=== PATIENT | male | born 1970 | race Caucasian/White ===

== ENCOUNTER 2024-02-03 19:39 | Inpatient (IN) | payer BC ==
[2024-02-03] MEDS: NITROGLYCERIN SL TABS 0.4 MG TAB SUBLINGUAL STA (20:25)
[2024-02-03 20:32] LABS: Basophils # (A) 0.1 k/uL (0-0.2); Basophils % (A) 1 %; Eosinophils # (A) 0.1 k/uL (0-0.7); Eosinophils % (A) 2 %; HCT 37.8 % (39.0-53.0); HGB 13.3 gm/dL (13.0-17.5); Lymphocytes % (A) 29 %; MCH 33.1 pg (25.0-35.0); MCHC 35.3 g/dL (31.0-37.0); MCV 93.7 fL (80.0-100.0); Mean Platelet Volume 9.7; Monocytes # (A) 0.5 k/uL (0-1.0); Monocytes % (A) 7 %; Neutrophils # (A) 3.9 k/uL (1.3-7.7); Neutrophils % (A) 58 %; Platelet Count 178 k/uL (150-450); RBC 4.03 m/uL (4.30-5.90); RDW 12.9 % (11.5-15.5); WBC 6.7 k/uL (3.8-10.6)
[2024-02-03 20:48] LABS: INR 0.9 (<1.2); Prothrombin Time 10.3 sec (10.0-12.5)
[2024-02-03 21:02] LABS: ALT 31 U/L (4-49); AST 33 U/L (17-59); African American GFR (CKD) >90 (>60 ml/min/1.73 sqM); Alkaline Phosphatase 91 U/L (38-126); Anion Gap 10 mmol/L; Blood Urea Nitrogen 20 mg/dL (9-20); Calcium 8.9 mg/dL (8.4-10.2); Carbon Dioxide 20 mmol/L (22-30); Chloride 105 mmol/L (98-107); Glucose 254 mg/dL (74-99); Magnesium 1.9 mg/dL (1.6-2.3); Non-African American GFR(CKD) >90 (>60 ml/min/1.73 sqM); Sodium 135 mmol/L (137-145); Total Bilirubin 0.6 mg/dL (0.2-1.3); Total Protein 6.9 g/dL (6.3-8.2)
[2024-02-03 21:19] LABS: Potassium 4.5 mmol/L (3.5-5.1)
[2024-02-03] MEDS: ONDANSETRON 4 MG/2 ML VIAL IVP STA (21:31)
[2024-02-03] MEDS: MORPHINE SULFATE 4 MG/ML SYRINGE IVP STA ×2 (21:31→23:51)
--- NOTE | 2024-02-03 21:44 | ED ---
Chest Pain HPI - General Source: patient, EMS Mode of arrival: EMS Limitations: no limitations <Ashwin Stapleton - Last Filed: 02/04/24 00:25> <Radha Omer - Last Filed: 02/04/24 01:38> - General Chief Complaint: Chest Pain Stated Complaint: Chest Pain Time Seen by Provider: 02/03/24 19:52 - History of Present Illness Initial Comments: 53-year-old male with a past medical history significant for hypertension, hyperlipidemia, type 2 diabetes presenting to the ED with a chief complaint of chest pain. Patient reports that he normally walks on the treadmill for approximately an hour a day at 3 mph. States today he was on the treadmill and approximately 15 minutes and started to feel a squeezing pain in the middle of his chest. Patient reports pain is constant. States that it seems to radiate to his right arm and right side of his neck. Reports that he was given nitro by EMS and baby aspirin for his and states that pain is currently 4 out of 10 and is ready. Patient is a non-smoker. Does note some associated shortness of breath with this. No abdominal pain or change in bowel or bladder habits. No fever or chills. No other complaints at this time. (Ashwin Stapleton) - Related Data Allergies Allergy/AdvReac Type Severity Reaction Status Date / Time No Known Allergies Allergy Verified 02/03/24 19:52 Review of Systems ROS Other: All systems not noted in ROS Statement are negative. <Ashwin Stapleton - Last Filed: 02/04/24 00:25> ROS Other: All systems not noted in ROS Statement are negative. <Radha Omer - Last Filed: 02/04/24 01:38> ROS Statement: Those systems with pertinent positive or pertinent negative responses have been documented in the HPI. Past Medical History Past Medical History: Diabetes Mellitus, Hyperlipidemia, Hypertension History of Any Multi-Drug Resistant Organisms: None Reported Past Surgical History: No Surgical Hx Reported Past Psychological History: No Psychological Hx Reported Smoking Status: Never smoker Past Alcohol Use History: Rare Past Drug Use History: None Reported <Ashwin Stapleton - Last Filed: 02/04/24 00:25> General Exam Limitations: no limitations <Ashwin Stapleton - Last Filed: 02/04/24 00:25> Course Vital Signs 02/03/24 02/03/24 02/03/24 19:48 19:50 20:46 Pulse Rate 70 68 Pulse Rate [ 70 Java Analyst ] Respiratory 16 16 Rate Blood Pressure 138/79 127/84 O2 Sat by Pulse 95 95 Oximetry 02/03/24 02/03/24 02/04/24 22:05 23:26 00:07 Pulse Rate 66 61 62 Pulse Rate [ Java Analyst ] Respiratory 16 16 22 Rate Blood Pressure 139/86 125/72 147/75 O2 Sat by Pulse 95 98 Oximetry 02/04/24 02/04/24 02/04/24 00:10 00:15 00:20 Pulse Rate 62 61 56 L Pulse Rate [ Java Analyst ] Respiratory 13 20 17 Rate Blood Pressure 147/93 147/93 115/71 O2 Sat by Pulse 98 98 97 Oximetry 02/04/24 02/04/24 00:22 00:25 Pulse Rate 54 L 55 L Pulse Rate [ Java Analyst ] Respiratory 20 15 Rate Blood Pressure 108/70 108/70 O2 Sat by Pulse 96 97 Oximetry Chest Pain MDM <Ashwin Stapleton - Last Filed: 02/04/24 00:25> <Radha Omer - Last Filed: 02/04/24 01:38> - MDM Was pt. sent in by a medical professional or institution ([facility], TEACHER DRAMA, urgent care, hospital, or prison...) When possible be specific @ -No Did you speak to anyone other than the patient for history (EMS, parent, family, police, friend...)? What history was obtained from this source @ -No Did you review nursing and triage notes (agree or disagree)? Why? @ -I reviewed and agree with nursing and triage notes Were old charts reviewed (outside hosp., previous admission, EMS record, old EKG, old radiological studies, urgent care reports/EKG's, prison records)? Report findings @ -No old charts were reviewed Differential Diagnosis (chest pain, altered mental status, abdominal pain women, abdominal pain men, vaginal bleeding, weakness, fever, dyspnea, syncope, headache, dizziness, GI bleed, back pain, seizure, CVA, palpatations, mental health, musculoskeletal)? @ -Differential Chest Pain: Stable Angina, Unstable Angina, STEMI, NSTEMI Aortic Dissection, Pneumothorax, Musculoskeletal, Esophageal Spasm GERD, Cholecystitis, Pancreatitis, Zoster, this is not meant to be an all-inclusive list. EKG interpreted by me (3pts min.). @ -Initial EKG interpreted by me which showed a sinus rhythm at a rate of 67 bpm with a KY 142, QRS 94, QT/QTc 399/415. This did show some ST elevations in 2 3 aVF Repeat EKG showed a sinus rhythm at 67 bpm with a [place] of 149, QRS 102, QT/QTc 396/412. There were some ST elevations in 2 3 and aVF. Patient had another EKG performed as he stated chest pain returned with increased pain Shows sinus rhythm with ST elevation in lead I, 2, aVL changed from prior. X-rays interpreted by me (1pt min.). @ -Chest x-ray interpreted me which revealed no evidence of acute process. CT interpreted by me (1pt min.). @ -None done U/S interpreted by me (1pt. min.). @ -None done What testing was considered but not performed or refused? (CT, X-rays, U/S, labs)? Why? @ -None What meds were considered but not given or refused? Why? @ -None Did you discuss the management of the patient with other professionals (professionals i.e. , PA, TEACHER DRAMA, lab, RT, psych nurse, social services manager, commuter train operator, teacher, nuclear officer, bilingual patient support caseworker)? Give summary @ -My attending physician discussed the case with Dr. Connors of cardiology and [facility] for admission. Was smoking cessation discussed for >3mins.? @ -No Was critical care preformed (if so, how long)? @ -35 Were there social determinants of health that impacted care today? How? (Homelessness, low income, unemployed, alcoholism, drug addiction, transportation, low edu. Level, literacy, decrease access to med. care, group home, rehab)? @ -Nou Was there de-escalation of care discussed even if they declined (Discuss DNR or withdrawal of care, Hospice)? DNR status @ -No What co-morbidities impacted this encounter? (DM, HTN, Smoking, COPD, CAD, Cancer, CVA, ARF, Chemo, Hep., AIDS, mental health diagnosis, sleep apnea, morbid obesity)? @ -Hypertension, hyperlipidemia, type 2 diabetes Was patient admitted / discharged? Hospital course, mention meds given and route, prescriptions, significant lab abnormalities, going to OR and other pertinent info. @ -Admission 53-year-old male presenting to the ED with complaints of chest pain after he was on the treadmill with some associated lightheadedness, diaphoresis, shortness of breath. Initial EKG here did show some ST elevations in 2 3 aVF. Initial troponin indeterminate at 0.24. Patient reported significant increase of this chest pain and had a repeat EKG performed which showed changes compared to prior. Case discussed with Dr. Connors who came to evaluate the patient. Initiated heparin here in the emergency department patient will be admitted. Undiagnosed new problem with uncertain prognosis? @ -No Drug Therapy requiring intensive monitoring for toxicity (Heparin, Nitro, Insulin, Cardizem)? @ -Heparin Were any procedures done? @ -No Diagnosis/symptom? @ -Unstable angina Acute, or Chronic, or Acute on Chronic? @ -Acute Uncomplicated (without systemic symptoms) or Complicated (systemic symptoms)? @ -Complicated Side effects of treatment? @ -No Exacerbation, Progression, or Severe Exacerbation? @ -No Poses a threat to life or bodily function? How? (Chest pain, [place], [place], pneumonia, PE, COPD, DKA, ARF, appy, cholecystitis, CVA, Diverticulitis, Homicidal, Suicidal, threat to staff... and all critical care pts) @ -Yes, unstable angina (Ashwin Stapleton) Patient care was discussed with me upon arrival, I reviewed the first EKG and agreed that it appeared ischemic but did not meet STEMI criteria I recommended t reatment for unstable angina with heparin unless there were significant contraindications. I reviewed the second EKG and was concern for ischemic changes again this does not meet STEMI criteria however I did discuss the findings with on-call music arranger Dr. Connors given the patient's history and EKG changes he did recommend activation of the Leadership Development Manager. Dr. Connors came to bedside to evaluate the patient recommended Leadership Development Manager for unstable angina with symptomatic chest pain. Patient remained awake alert oriented and hemodynamically stable throughout his stay in the ER and was transferred to the Leadership Development Manager. I then spoke with Dr. Ayon regarding this patient and he accepts the admission. (Radha Omer) Disposition Time of Disposition: 00:00 <Ashwin Stapleton - Last Filed: 02/04/24 00:25> <Radha Omer - Last Filed: 02/04/24 01:38> Clinical Impression: Unstable angina Disposition: ADMITTED IP TO THIS HOSP Condition: Fair
--- NOTE | 2024-02-03 23:27 | XR ---
EXAMINATION TYPE: XR chest 2V DATE OF EXAM: 02/03/2024 COMPARISON: NONE HISTORY: Chest pain. TECHNIQUE: Frontal and lateral views of the chest are obtained. FINDINGS: Suspect some mild chronic parenchymal changes bilaterally. There is no suspicious focal air space opacity, pleural effusion, or pneumothorax seen. The cardiac silhouette size is within normal limits. The osseous structures are intact. IMPRESSION: No acute process.
[2024-02-03] MEDS ORDERED: HEPARIN SODIUM 1,000 UN/ML (10ML VL) IV PRN (23:55)
[2024-02-04] MEDS: HEPARIN SODIUM 1,000 UN/ML (10ML VL) IV ONE (00:05)
[2024-02-04] MEDS: HEPARIN SOD,PORK IN 0.45% NACL 25,000 UNIT in 0.45% NACL 1 250ML.BAG IV SCH (00:06)
[2024-02-04] MEDS: HYDROmorphone 1 MG/ML 1 ML SYRINGE IVP STA (00:07)
[2024-02-04] MEDS: NITROGLYCERIN SL TABS 0.4 MG TAB SUBLINGUAL PRN (00:11)
[2024-02-04] MEDS ORDERED: VERAPAMIL 2.5 MG/ML 2 ML AMP ONE (00:33)
[2024-02-04] MEDS ORDERED: LIDOCAINE 1% INJ 10MG/ML (20 ML MDV) ONE (00:33)
--- NOTE | 2024-02-04 00:33 | P.CRDCN ---
History of Present Illness History of present illness: HISTORY OF PRESENTING ILLNESS Patient is a pleasant 53-year-old male with history of obesity, diabetes mellitus type 2, strong family history of CAD who presents secondary to chest pain. He states he had been feeling fairly well up until tonight when he started having chest discomfort when he was exercising on a treadmill. He did have associated diaphoresis and shortness breath and had stopped some mild improvement however chest pain had been stuttering and eventually worsened and called EMS. He was given aspirin and 2 nitroglycerin with improvement in chest pain. Initial EKG showing normal sinus rhythm, normal axis, no significant ST or T wave abnormalities. Patient was chest pain-free however then began having more chest heaviness 8 out of 10 with associated diaphoresis and shortness breath and EKG showed dynamic changes with significant ST depressions, T-wave inversions inferiorly as well as minimal J-point elevation, ST elevation 1 and aVL. He denies any similar episodes in the past. Does have father with history of aortic valve replacement as well as all of his 6-7 brothers and sisters with stents. He has been on cholesterol medications for last 20 years. Initial troponin 0.02 however repeat 0.1. He was given additional nitroglycerin, heparin and currently chest pain mildly improved at 4 out of 10. REVIEW OF SYSTEMS At the time of my exam: CONSTITUTIONAL: Denies fever or chills. CARDIOVASCULAR: Denies chest pain, shortness of breath, orthopnea, PND or palpitations. RESPIRATORY: Denies cough. GASTROINTESTINAL: Denies abdominal pain, diarrhea, constipation, nausea or vomiting. MUSCULOSKELETAL: Denies myalgias. NEUROLOGIC: Denies numbness, tingling or weakness. ENDOCRINE: Denies fatigue, weight change, polydipsia or polyurina. GENITOURINARY: Denies burning, hematuria or urgency with micturation. HEMATOLOGIC: Denies history of anemia or bleeding. PHYSICAL EXAMINATION Vital signs reviewed. CONSTITUTIONAL: No apparent distress, mildly diaphoretic, obese. HEENT: Head is normocephalic. Pupils are equal, round. Sclerae anicteric. Mucous membranes of the mouth are moist. No JVD. No carotid bruit. CHEST EXAMINATION: Lungs are clear to auscultation. No chest wall tenderness is noted on palpation or with deep breathing. HEART EXAMINATION: Regular rate and rhythm. S1, S2 heard. No murmurs, gallops or rub. ABDOMEN: Soft, nontender. Positive bowel sounds. EXTREMITIES: 2+ peripheral pulses, no lower extremity edema and no calf tenderness. NEUROLOGIC EXAMINATION: Patient is awake, alert and oriented x3. ASSESSMENT 1. Non-STEMI with ongoing chest pain 2. Hyperlipidemia 3. Strong family history of CAD 4. Diabetes mellitus type 2 5. Morbid obesity PLAN Patient with stuttering chest pain new-onset consistent with unstable angina wi th additional minimally elevated troponins. Given the ongoing chest pain Surveillance Dual Rate Officer team called in and we will proceed with urgent heart catheterization. Check 2-D echo. Aspirin and Lipitor. Beta ana as tolerated however borderline lower heart rates in the 50s. Further recommendations to follow. Past Medical History Past Medical History: Diabetes Mellitus, Hyperlipidemia, Hypertension History of Any Multi-Drug Resistant Organisms: None Reported Past Surgical History: No Surgical Hx Reported Past Psychological History: No Psychological Hx Reported Smoking Status: Never smoker Past Alcohol Use History: Rare Past Drug Use History: None Reported Medications and Allergies Allergies Allergy/AdvReac Type Severity Reaction Status Date / Time No Known Allergies Allergy Verified 02/03/24 19:52 Physical Exam Vitals: Vital Signs Pulse Pulse Resp BP Pulse Ox 02/04/24 00:20 56 L 17 115/71 97 02/04/24 00:15 61 20 147/93 98 02/04/24 00:10 62 13 147/93 98 02/04/24 00:07 62 22 147/75 98 02/03/24 23:26 61 16 125/72 95 02/03/24 22:05 66 16 139/86 02/03/24 20:46 68 16 127/84 95 02/03/24 19:50 70 02/03/24 19:48 70 16 138/79 95 Intake and Output 02/03/24 02/03/24 02/04/24 14:59 22:59 06:59 Other: Weight 121.109 kg Results 02/03/24 20:08 02/03/24 20:08 Cardiac Enzymes 02/03/24 02/03/24 02/03/24 Range/Units 20:08 20:08 22:48 AST 33 (17-59) U/L Troponin I 0.024 0.113 H* (0.000-0.034) ng/mL Coagulation 02/03/24 Range/Units 20:08 PT 10.3 (10.0-12.5) sec APTT 22.0 (22.0-30.0) sec CBC 02/03/24 Range/Units 20:08 WBC 6.7 (3.8-10.6) k/uL RBC 4.03 L (4.30-5.90) m/uL Hgb 13.3 (13.0-17.5) gm/dL Hct 37.8 L (39.0-53.0) % Plt Count 178 (150-450) k/uL Comprehensive Metabolic Panel 02/03/24 Range/Units 20:08 Sodium 135 L (137-145) mmol/L Potassium 4.5 (3.5-5.1) mmol/L Chloride 105 (98-107) mmol/L Carbon Dioxide 20 L (22-30) mmol/L BUN 20 (9-20) mg/dL Creatinine 0.78 (0.66-1.25) mg/dL Glucose 254 H (74-99) mg/dL Calcium 8.9 (8.4-10.2) mg/dL AST 33 (17-59) U/L ALT 31 (4-49) U/L Alkaline Phosphatase 91 (38-126) U/L Total Protein 6.9 (6.3-8.2) g/dL Albumin 4.0 (3.5-5.0) g/dL Current Medications Generic Name Dose Route Start Last Admin Trade Name Freq PRN Reason Stop Dose Admin Heparin Sodium (Porcine) 0 unit 02/03/24 23:55 Heparin Sodium 1,000 Un/Ml (10ml Vl) IV PER PROTOCOL PRN Low PTT Protocol Heparin Sodium/Sodium Chloride 250 mls @ 10 mls/hr 02/03/24 23:45 02/04/24 00:06 25,000 unit/ Sodium Chloride IV 8.257 units/kg/hr .Q24H PEGGY 10 mls/hr Administration Protocol 8.257 UNITS/KG/HR Nitroglycerin 0.4 mg 02/04/24 00:03 02/04/24 00:11 Nitroglycerin Sl Tabs 0.4 Mg Tab SUBLINGUAL 0.4 mg Q5M PRN Administration Chest Pain Intake and Output 02/03/24 02/03/24 02/04/24 14:59 22:59 06:59 Other: Weight 121.109 kg Patient Weight 02/04/24 06:59 Weight 121.109 kg 02/03/24 20:08 02/03/24 20:08
[2024-02-04] MEDS: MIDAZOLAM 2 MG/2 ML VIAL IVP ONE (00:40)
[2024-02-04] MEDS: fentaNYL (PF) 50 MCG/ML 2 ML AMP IVP ONE (00:42)
[2024-02-04] MEDS ORDERED: fentaNYL (PF) 50 MCG/ML 2 ML AMP ONE (00:43)
[2024-02-04] MEDS: LIDOCAINE 1% INJ 10MG/ML (5 ML VIAL-PF) SQ ONE (00:43)
[2024-02-04] MEDS: VERAPAMIL SYRINGE (5 MG/10 ML) INTRAARTER ONE (00:45)
[2024-02-04] MEDS ORDERED: HEPARIN SODIUM 1,000 UN/ML (10ML VL) ONE ×2 (00:48→01:12)
[2024-02-04] MEDS ORDERED: TICAGRELOR 90 MG TAB ONE (00:49)
[2024-02-04] MEDS: SODIUM CHLORIDE 0.9% 1,000 ML IV ONE (00:49)
[2024-02-04] MEDS: TICAGRELOR 90 MG TAB PO ONE (00:52)
[2024-02-04] MEDS: IOPAMIDOL-370 100ML BTL INJ ONE ×2 (01:10→01:29)
[2024-02-04] MEDS: NITROGLYCERIN 1000MCG/10ML SYRINGE INTRACORON ONE (01:16)
[2024-02-04 01:54] LABS: Glucose,Whole Blood 168 mg/dL (70-110)
[2024-02-04] MEDS ORDERED: MAG HYDROX/AL HYDROX/SIMETH 30 ML CUP PO PRN (01:56)
[2024-02-04] MEDS ORDERED: ATROPINE SULFATE 0.1 MG/ML 10ML SYRINGE IV PRN (01:56)
[2024-02-04] MEDS ORDERED: RX INFO: IV CONTRAST WAS GIVEN 1 EACH MISC MISCELLANE PRN (01:56)
--- NOTE | 2024-02-04 01:56 | P.PRCINT ---
Percutaneous Coronary Int. - Percutaneous Coronary Intervention Percutaneous Coronary Intervention: PROCEDURES PERFORMED: Left heart catheterization, bilateral coronary angiography, ultrasound guided arterial access, PCI mid LAD with a 3.5 x 28mm Xience DEBRA, post dilated with a 4.0 NC balloon, IVUS LAD, Penumbra aspiration thrombetcomy LAD INDICATION: Unstable angina with ongoing chest pain, non-STEMI with evolution to STEMI by the time he reached the Respiratory Care Practitioner CONSENT:I have discussed the risks, benefits and alternative therapies for the above-mentioned procedure and for both sedation/analgesia as well as necessary blood product administration, if indicated, as they pertain to this patient. The patient has indicated understanding and acceptance of the risks and procedures discussed. PROCEDURE: After the risks, benefits and alternatives of the above mentioned procedure explained in detail with the patient, informed consent was obtained. Patient was taken to the catheterization lab and prepped and draped in usual fashion. Initially in ER EKG was normal and then to show progressive ST depressions and T-wave inversions however no criteria for elevations. By the time he reached the Respiratory Care Practitioner he was found to have ST elevations in V3 through V6. Ultrasound guidance was used to assess for arterial access. 1% lidocaine was used to anesthetize the right radial artery. A 6-Lao sheath was placed in the right radial artery using modified Seldinger technique and ultrasound guidance. The decision was made to perform PCI of LAD. A 6-Lao CLS 3.5 guide was used to engage the left main. A 0.014 BMW wire was advanced with distal LAD. Predilation was performed with a 2.5 x 12 mm balloon. Next Penumbra aspiration thrombectomy was performed x 2 passes. Intravascular ultrasound showed diffuse disease with more soft plaque. A 3.5 x 28 mm Xience drug-eluting stent was placed in long term in a small diagonal branch however without any impingement given lesion came back to before the diagonal branch on intravascular ultrasound. Next repeat intravascular ultrasound was performed with some underexpansion of the stents and therefore a 4.0 x 12 mm noncompliant balloon was used to post dilate the stent. The distal portion of the stent was still under expanded and therefore a 4.0 x 8 mm noncompliant balloon was taken up to 26 mm with improvement in stent apposition and stent expansion. Repeat intravascular ultrasound showed excellent stent apposition with no dissection. Final angiograms were performed. Pre-intervention there was 100% stenosis and ELIAZAR 0 flow and postintervention there was less than 10% stenosis with ELIAZAR 3 flow. Right coronary angiography was performed with a 5-Lao FR5 catheter in various views. A 5-Lao FR5 catheter was inserted into the left ventricle and pressure measurements were obtained. The right radial sheath was removed and a TR band was placed with hemostasis achieved. The patient tolerated the procedure well. Patient was transported back to the post catheterization holding area in stable condition. Conscious Sedation: Patient was monitored under the direct supervision of myself for conscious sedation using Versed and fentanyl for a total duration of 51 minutes HEMODYNAMICS: Aorta: 122/88 LV: 127/8, LVEDP 32 SELECTIVE CORONARY ARTERIOGRAPHY: LEFT MAIN: The left main is a large caliber vessel which bifurcates into the LAD and circumflex. There is no significant stenosis. LEFT ANTERIOR DESCENDING CORONARY ARTERY: LAD is a large caliber vessel which wraps around to the apex. There is dual LAD system with a small caliber more septal branch with mild luminal irregularities. There is mild proximal LAD 10- 20% stenosis and a mid LAD 100% stenosis just after a small caliber diagonal 1 branch. The remainder of the LAD has mild luminal irregularities. LEFT CIRCUMFLEX CORONARY ARTERY: Left circumflex is a moderate caliber vessel diffuse mild luminal irregularities 10-20% stenosis. RIGHT CORONARY ARTERY: The right coronary artery is a large caliber vessel which gives off a PDA and PLV branch and is the dominant vessel. There is a proximal RCA 30% stenosis, and mid RCA 40% stenosis in the mid to distal RCA 50% stenosis. The PDA appears small caliber and has a 60-70% ostial stenosis. FINAL IMPRESSION: 1. CAD as described above with 100% mid LAD stenosis, 50% RCA stenosis, 60-70% small caliber PDA ostial stenosis 2. Anterior ST elevations noted upon arrival to the Respiratory Care Practitioner, progressed from the ER 3. Significantly elevated left sided filling pressures 4. Status post PCI mid LAD with a 3.5 x 28mm Xience DEBRA, post dilated with a 4.0 NC balloon PLAN: 1. Aggressive risk factor modification per most recent ACC/AHA guidelines. 2. Treat RCA medically. If patient having more angina-type symptoms consider stress testing or functional assessment of RCA with iFR/FFR 3. Continue dual antiplatelets with aspirin in [place] for 12 months.
[2024-02-04] MEDS: SODIUM CHLORIDE 0.9% 1,000 ML in EMPTY BAG 1 BAG IV SCH (02:31)
[2024-02-04] MEDS: ZOLPIDEM 5 MG TAB PO PRN (02:40)
[2024-02-04] MEDS: METOPROLOL SUCCINATE (ER) 25 MG TAB.ER.24H PO SCH (04:05)
[2024-02-04 05:19] LABS: Basophils % (A) 0 %; Eosinophils % (A) 0 %; HCT 46.2 % (39.0-53.0); HGB 15.7 gm/dL (13.0-17.5); Lymphocytes # (A) 1.5 k/uL (1.0-4.8); Lymphocytes % (A) 12 %; MCH 31.4 pg (25.0-35.0); MCV 92.5 fL (80.0-100.0); Mean Platelet Volume 9.1; Monocytes # (A) 0.5 k/uL (0-1.0); Monocytes % (A) 4 %; Neutrophils # (A) 10.2 k/uL (1.3-7.7); Neutrophils % (A) 83 %; Platelet Count 223 k/uL (150-450); RDW 13.1 % (11.5-15.5); WBC 12.3 k/uL (3.8-10.6)
[2024-02-04 05:35] LABS: African American GFR (CKD) >90 (>60 ml/min/1.73 sqM); Anion Gap 13 mmol/L; Blood Urea Nitrogen 16 mg/dL (9-20); Carbon Dioxide 19 mmol/L (22-30); Chloride 105 mmol/L (98-107); Glucose 198 mg/dL (74-99); INR 0.9 (<1.2); Non-African American GFR(CKD) >90 (>60 ml/min/1.73 sqM); Potassium 4.4 mmol/L (3.5-5.1); Prothrombin Time 10.5 sec (10.0-12.5); Sodium 137 mmol/L (137-145)
[2024-02-04] MEDS: IBUPROFEN 600 MG TAB PO PRN (06:26)
[2024-02-04] MEDS: ASPIRIN 81 MG PO SCH (08:12)
[2024-02-04] MEDS: LOSARTAN 25 MG TAB PO SCH (08:12)
[2024-02-04] MEDS: TICAGRELOR 90 MG TAB PO SCH (08:12)
[2024-02-04] MEDS ORDERED: ONDANSETRON 4 MG/2 ML VIAL IVP PRN (09:27)
[2024-02-04] MEDS: LOSARTAN 50 MG TAB PO SCH (09:30)
--- NOTE | 2024-02-04 10:48 | PN ---
PROGRESS NOTE This gentleman has history of CAD, came in with a [id number] [place] which went on to have ST-elevation [place] just before the procedure, underwent stenting of a totally occluded mid LAD with a good result. Has moderate disease in RCA. He is doing well. Remains hemodynamically stable in sinus rhythm without any significant EKG changes. R- waves are fairly well preserved with some QS pattern in leads V1 and V2. He underwent stenting from the right radial approach. Site is clean and dry. He has moderate disease in RCA. Plan is to continue dual antiplatelet therapy, statins, increase activity, and move him to telemetry. We will obtain echocardiogram to assess LV function. I will increase the dose of losartan to 50 mg daily. Vital signs stable. S1-S2 heard normally. Lungs are clear. Abdomen and lower extremity exam unchanged. Right radial site is clean and dry. Will move to telemetry. AGNES / JAMESN: [id number] /
[2024-02-04 11:42] LABS: Glucose,Whole Blood 235 mg/dL (70-110)
[2024-02-04] MEDS ORDERED: DEXTROSE 50% SYRINGE 50 ML IVP PRN ×2 (12:29)
--- NOTE | 2024-02-04 12:32 | P.HPIM ---
History of Present Illness H&P Date: 02/04/24 Chief Complaint: Chest pain * 53-year-old gentleman with past medical history of diabetes mellitus type 2, history of obesity presents to the emergency department with complaints of chest pain. Patient stated his symptom onset started while he was exercising on a treadmill. Chest pain associated with diaphoresis shortness of breath. * Patient complained of worsening chest pain shortness of breath and EMS was called. Patient was given aspirin as well as nitroglycerin with improvement in chest pain. * Initial EKG obtained showed significant ST segment depression T wave i nversions in inferior lead. * Initial troponin was obtained which was elevated, cardiology was consulted and patient was started on nitroglycerin and IV heparin * Patient was eventually taken to cardiac Counseling Department Chair underwent PCI to LAD with drug-eluting stent * Transitioning to Counseling Department Chair patient had ST elevations and was noted to have 100% mid LAD stenosis, 50% RCA stenosis 60 to 70% PDA stenosis REVIEW OF SYSTEMS: Chest pain, shortness of breath CONSTITUTIONAL: No fever, no malaise, no fatigue. HEENT: No recent visual problems or hearing problems. Denied any sore throat. CARDIOVASCULAR: Chest pain, shortness of breath PULMONARY: No shortness of breath, no cough, no hemoptysis. GASTROINTESTINAL: No diarrhea, no nausea, no vomiting, no abdominal pain. NEUROLOGICAL: No headaches, no weakness, no numbness. HEMATOLOGICAL: Denies any bleeding or petechiae. GENITOURINARY: Denies any burning micturition, frequency, or urgency. MUSCULOSKELETAL/RHEUMATOLOGICAL: Denies any joint pain, swelling, or any muscle pain. ENDOCRINE: Denies any polyuria or polydipsia. PHYSICAL EXAMINATION: GENERAL: The patient is alert and oriented x3, not in any acute distress. Well developed, well nourished. HEENT: Pupils are round and equally reacting to light. EOMI. Normocephalic, atraumatic. CARDIOVASCULAR: S1 and S2 present. No murmurs , Right radial access PULMONARY: Chest is clear to auscultation, no wheezing or crackles. ABDOMEN: Soft, nontender, nondistended, normoactive bowel sounds. No palpable organomegaly. MUSCULOSKELETAL: No joint swelling or deformity. EXTREMITIES: No cyanosis, clubbing, or pedal edema. NEUROLOGICAL: Gross neurological examination did not reveal any focal deficits. SKIN: No rashes. Past Medical History Past Medical History: Chest Pain / Angina, Diabetes Mellitus, Hyperlipidemia, Hypertension, Myocardial Infarction (TN) Last Myocardial Infarction Date:: 02/03/24 History of Any Multi-Drug Resistant Organisms: None Reported Past Surgical History: No Surgical Hx Reported Past Anesthesia/Blood Transfusion Reactions: No Reported Reaction Past Psychological History: No Psychological Hx Reported Smoking Status: Never smoker Past Alcohol Use History: Rare Past Drug Use History: None Reported - Past Family History Father Family Medical History: Chest Pain / Angina, Coronary Artery Disease (CAD), Diabetes Mellitus, Hypertension, Liver Disease Additional Family Medical History / Comment(s): AVR Mother Family Medical History: Diabetes Mellitus Medications and Allergies Home Medications Medication Instructions Recorded Confirmed Type Aspirin EC [Ecotrin Low Dose] 81 mg PO DAILY 02/04/24 02/04/24 History Atorvastatin [Lipitor] 10 mg PO DAILY 02/04/24 02/04/24 History Empagliflozin [Jardiance] 25 mg PO DAILY 02/04/24 02/04/24 History Glimepiride [Amaryl] 4 mg PO AC-BID 02/04/24 02/04/24 History metFORMIN HCL [Glucophage] 1,000 mg PO AC-BID 02/04/24 02/04/24 History Allergies Allergy/AdvReac Type Severity Reaction Status Date / Time No Known Allergies Allergy Verified 02/04/24 11:33 Physical Exam Vitals: Vital Signs Temp Pulse Pulse Resp BP Pulse Ox 02/04/24 08:00 98.4 F 66 19 139/87 96 02/04/24 07:00 70 15 135/83 93 L 02/04/24 06:00 70 18 147/83 97 02/04/24 05:00 79 20 145/92 95 02/04/24 04:00 97.9 F 76 12 149/89 96 02/04/24 03:00 66 16 155/97 96 02/04/24 02:45 70 18 97 02/04/24 02:30 66 13 97 02/04/24 02:15 97.5 F L 70 16 155/97 97 02/04/24 00:25 55 L 15 108/70 97 02/04/24 00:22 54 L 20 108/70 96 02/04/24 00:20 56 L 17 115/71 97 02/04/24 00:15 61 20 147/93 98 02/04/24 00:10 62 13 147/93 98 02/04/24 00:07 62 22 147/75 98 02/03/24 23:26 61 16 125/72 95 02/03/24 22:05 66 16 139/86 02/03/24 20:46 68 16 127/84 95 02/03/24 19:50 70 02/03/24 19:48 70 16 138/79 95 Intake and Output 02/03/24 02/04/24 02/04/24 22:59 06:59 14:59 Intake Total 1440 195.5 Output Total 1050 300 Balance 390 -104.5 Intake: IV 900 120 Sodium Chloride 0.9% 1, 600 120 000 ml In Empty Bag 1 bag @ 1 ML/KG/HR 121.109 mls /hr IV .Q8H16M [facility] Rx#: [id number] Intake, IV Titration 75.5 Amount Heparin Sod,Pork in 0.45% 75.5 NaCl 25,000 unit In 0.45 % NaCl 1 250ml.bag @ 8. 257 UNITS/KG/HR 10 mls/hr IV .Q24H [facility] Rx#: [id number] Oral 540 Output: Urine 1050 300 Other: Voiding Method Urinal Urinal Weight 121.109 kg 121.109 kg Results CBC & Chem 7: 02/04/24 04:44 02/04/24 04:44 Labs: Abnormal Lab Results - Last 24 Hours (Table) 02/03/24 02/03/24 02/03/24 Range/Units 20:08 20:08 22:48 WBC (3.8-10.6) k/uL RBC 4.03 L (4.30-5.90) m/uL Hct 37.8 L (39.0-53.0) % Neutrophils # (1.3-7.7) k/uL APTT (22.0-30.0) sec Sodium 135 L (137-145) mmol/L Carbon Dioxide 20 L (22-30) mmol/L Glucose 254 H (74-99) mg/dL POC Glucose (mg/dL) (70-110) mg/dL Troponin I 0.113 H* (0.000-0.034) ng/mL 02/04/24 02/04/24 02/04/24 Range/Units 01:53 04:44 04:44 WBC 12.3 H (3.8-10.6) k/uL RBC (4.30-5.90) m/uL Hct (39.0-53.0) % Neutrophils # 10.2 H (1.3-7.7) k/uL APTT 35.5 H (22.0-30.0) sec Sodium (137-145) mmol/L Carbon Dioxide (22-30) mmol/L Glucose (74-99) mg/dL POC Glucose (mg/dL) 168 H (70-110) mg/dL Troponin I (0.000-0.034) ng/mL 02/04/24 Range/Units 04:44 WBC (3.8-10.6) k/uL RBC (4.30-5.90) m/uL Hct (39.0-53.0) % Neutrophils # (1.3-7.7) k/uL APTT (22.0-30.0) sec Sodium (137-145) mmol/L Carbon Dioxide 19 L (22-30) mmol/L Glucose 198 H (74-99) mg/dL POC Glucose (mg/dL) (70-110) mg/dL Troponin I (0.000-0.034) ng/mL Thrombosis Risk Factor Assmnt - Choose All That Apply Any of the Below Risk Factors Present?: Yes Each Factor Represents 1 point: Acute TN, Age 41-60 years Other Risk Factors: No Other congenital or acquired thrombophilia - If yes, enter type in comment: No Thrombosis Risk Factor Assessment Total Risk Factor Score: 2 Thrombosis Risk Factor Assessment Level: Low Risk Assessment and Plan Assessment: Assessment and plan Non-ST elevated TN on presentation which transitioned to anterior ST elevations Coronary artery disease s/p PCI LAD Diabetes mellitus type 2 Obesity * Regards to non-ST elevated TN patient treated with nitroglycerin and IV heparin, s/p cardiac catheterization and PCI to LAD continue patient on dual antiplatelet, * Echocardiogram ordered, cardiology consulted and following * In regards to diabetes mellitus Accu-Cheks ACHS continue patient on oral hypoglycemic * In regards to obesity BMI of 39, lifestyle modification recommended * CODE STATUS is full code Time with Patient: Greater than 30
--- NOTE | 2024-02-04 12:40 | CA ---
Transthoracic Echo Report Name: Yunior Engel Age: 53 Gender: M : 1970 Exam Date: 02/04/2024 11:04 Exam Location: [facility] Ht (in): 69 Wt (lb): 267 Ordering Physician: Brian Connors DO ([email or web address]) Attending/Referring Phys: Gut Carrier Imelda Cage RDCS Procedure CPT: Indications: re: LV function Cardiac Hx: Technical Quality: Technically difficult study Contrast 1: Definity Total Dose (mL): 2 Contrast 2: Total Dose (mL): MEASUREMENTS (Male / Female) Normal Values 2D ECHO LV Diastolic Diameter PLAX 5.5 cm 4.2 - 5.9 / 3.9 - 5.3 cm LV Systolic Diameter PLAX 3.7 cm IVS Diastolic Thickness 1.5 cm 0.6 - 1.0 / 0.6 - 0.9 cm LVPW Diastolic Thickness 1.3 cm 0.6 - 1.0 / 0.6 - 0.9 cm LV Relative Wall Thickness 0.5 RV Internal Dim ED PLAX 3.3 cm M-MODE Aortic Root Diameter MM 3.8 cm LA Systolic Diameter MM 2.9 cm LA Ao Ratio MM 0.8 AV Cusp Separation MM 1.6 cm DOPPLER AV Peak Velocity 114.6 cm/s AV Peak Gradient 5.3 mmHg AV Mean Velocity 91.8 cm/s AV Mean Gradient 3.5 mmHg AV Velocity Time Integral 22.4 cm LVOT Peak Velocity 85.6 cm/s LVOT Peak Gradient 2.9 mmHg LVOT Velocity Time Integral 17.7 cm MV Area PHT 4.4 cm??? Mitral E Point Velocity 62.5 cm/s Mitral A Point Velocity 82.4 cm/s Mitral E to A Ratio 0.8 MV Deceleration Time 174.3 ms MV E' Velocity 5.5 cm/s Mitral E to MV E' Ratio 11.4 FINDINGS Left Ventricle Moderately increased left ventricular wall thickness. Left ventricular cavity size normal. Moderately impaired left ventricular systolic function with ejection fraction of 40-45% with apical and mid anterior apical and septal wall hypokinesis. Right Ventricle Normal right ventricular size and function. Right ventricular systolic pressure within normal limits. Right Atrium Normal right atrial size. Left Atrium Normal left atrial size. Mitral Valve Structurally normal mitral valve. No mitral stenosis, regurgitation or prolapse. Aortic Valve No aortic valve stenosis or regurgitation. Tricuspid Valve Structurally normal tricuspid valve. Pulmonic Valve Structurally normal pulmonic valve. Pericardium No pericardial effusion. Aorta Normal size aortic root and proximal ascending aorta. CONCLUSIONS Technically difficult study. Definity ECHO contrast used for improved visualization of the endocardial borders (inadequate visualization of two or more contiguous segments). Moderately impaired left ventricle systolic function with segmental wall motion abnormality consistent with CAD Limited Doppler study with no significant abnormalities Previewed by: Dr. Taurus Vernon MD (Electronically Signed) Final Date: 04 February 2024 12:39
[2024-02-04] MEDS: INSULIN ASPART (NovoLOG) 100 UNIT/ML VIAL SQ SCH (12:52)
[2024-02-04] MEDS: DAPAGLIFLOZIN PROPANEDIOL 10 MG TABLET PO SCH (13:06)
[2024-02-04] MEDS: GLIMEPIRIDE 4 MG TAB PO SCH (13:06)
[2024-02-04 14:33] VITALS: BMI 39.4
[2024-02-04] MEDS: ACETAMINOPHEN TAB 325 MG TAB PO PRN (16:24)
[2024-02-04 17:10] LABS: Glucose,Whole Blood 156 mg/dL (70-110)
[2024-02-04 20:02] LABS: Glucose,Whole Blood 198 mg/dL (70-110)
[2024-02-04] MEDS: ATORVASTATIN 80 MG TAB PO SCH (20:08)
[2024-02-05 06:04] LABS: Glucose,Whole Blood 199 mg/dL (70-110)
[2024-02-05 07:41] LABS: HCT 49.1 % (39.0-53.0); HGB 16.6 gm/dL (13.0-17.5); MCH 30.9 pg (25.0-35.0); MCHC 33.7 g/dL (31.0-37.0); MCV 91.7 fL (80.0-100.0); Mean Platelet Volume 8.7; Platelet Count 206 k/uL (150-450); RBC 5.36 m/uL (4.30-5.90); RDW 13.1 % (11.5-15.5); WBC 11.6 k/uL (3.8-10.6)
[2024-02-05 08:08] LABS: African American GFR (CKD) >90 (>60 ml/min/1.73 sqM); Anion Gap 11 mmol/L; Blood Urea Nitrogen 11 mg/dL (9-20); Calcium 9.4 mg/dL (8.4-10.2); Carbon Dioxide 21 mmol/L (22-30); Chloride 104 mmol/L (98-107); Glucose 195 mg/dL (74-99); Non-African American GFR(CKD) >90 (>60 ml/min/1.73 sqM); Potassium 4.2 mmol/L (3.5-5.1); Sodium 136 mmol/L (137-145)
[2024-02-05] MEDS ORDERED: ASPIRIN 325 MG TAB PO SCH (09:00)
[2024-02-05 11:40] LABS: Glucose,Whole Blood 158 mg/dL (70-110)
--- NOTE | 2024-02-05 11:40 | P.DS ---
Providers Date of admission: 02/04/24 00:53 Expected date of discharge: 02/05/24 Attending physician: Adilson Ayon MD Consults: 02/04/24 00:53 Consult Physician Urgent Consulting Provider: Brian Connors Consult Reason/Comments: unstable angina Do you want consulting provider notified?: Already Contacted 02/04/24 01:56 Consult Physician Routine Consulting Provider: [facility] Consult Reason/Comments: Post Interventional Patient Do you want consulting provider notified?: Already Contacted Primary care physician: Marycruz Myers MD Hospital Course: * 53-year-old gentleman with past medical history of diabetes mellitus type 2, history of obesity presents to the emergency department with complaints of chest pain. Patient stated his symptom onset started while he was exercising on a treadmill. Chest pain associated with diaphoresis shortness of breath. * Patient complained of worsening chest pain shortness of breath and EMS was called. Patient was given aspirin as well as nitroglycerin with improvement in chest pain. * Initial EKG obtained showed significant ST segment depression T wave inversions in inferior lead. * Initial troponin was obtained which was elevated, cardiology was consulted and patient was started on nitroglycerin and IV heparin * Patient was eventually taken to cardiac [facility] Picture [employer]inter underwent PCI to LAD with drug-eluting stent * Transitioning to [facility] [employer] patient had ST elevations and was noted to have 100% mid LAD stenosis, 50% RCA stenosis 60 to 70% PDA stenosis * 02/05/24: Patient was seen and evaluated postcardiac cath patient was monitored and transferred out of ICU, continue current medication regimen blood pressure monitored patient seen by cardiology and cleared for discharge PHYSICAL EXAMINATION: GENERAL: The patient is alert and oriented x3, not in any acute distress. Well developed, well nourished. HEENT: Pupils are round and equally reacting to light. EOMI. Normocephalic, atraumatic. CARDIOVASCULAR: S1 and S2 present. No murmurs , Right radial access no hematoma PULMONARY: Chest is clear to auscultation, no wheezing or crackles. ABDOMEN: Soft, nontender, nondistended, normoactive bowel sounds. No palpable organomegaly. MUSCULOSKELETAL: No joint swelling or deformity. EXTREMITIES: No cyanosis, clubbing, or pedal edema. NEUROLOGICAL: Gross neurological examination did not reveal any focal deficits. SKIN: No rashes. Assessment and plan Non-ST elevated HI on presentation which transitioned to anterior ST elevations Coronary artery disease s/p PCI LAD Diabetes mellitus type 2 Obesity * Regards to non-ST elevated HI patient was treated with nitroglycerin and IV heparin, s/p cardiac catheterization and PCI to LAD continue patient on dual antiplatelet, aspirin, Brilinta, Lipitor * Echocardiogram shows ejection fraction of 40 to 45% cardiology consulted and following * In regards to diabetes mellitus, continue home regimen upon discharge * In regards to obesity BMI of 39, lifestyle modification recommended Patient Condition at Discharge: Fair Plan - Discharge Summary Discharge Rx Participant: Yes New Discharge Prescriptions: New Aspirin 81 mg PO DAILY 30 Days #30 tab Atorvastatin [Lipitor] 80 mg PO HS 30 Days #30 tab Ticagrelor [Brilinta] 90 mg PO BID 30 Days #60 tab Losartan [Cozaar] 100 mg PO DAILY 30 Days #60 tab Metoprolol Succinate (ER) [Toprol XL] 25 mg PO DAILY 30 Days #30 tab Continue metFORMIN HCL [Glucophage] 1,000 mg PO AC-BID Empagliflozin [Jardiance] 25 mg PO DAILY Glimepiride [Amaryl] 4 mg PO AC-BID Discontinued Atorvastatin [Lipitor] 10 mg PO DAILY Aspirin EC [Ecotrin Low Dose] 81 mg PO DAILY Discharge Medication List Empagliflozin [Jardiance] 25 mg PO DAILY 02/04/24 [History] Glimepiride [Amaryl] 4 mg PO AC-BID 02/04/24 [History] metFORMIN HCL [Glucophage] 1,000 mg PO AC-BID 02/04/24 [History] Aspirin 81 mg PO DAILY 30 Days #30 tab 02/05/24 [Rx] Atorvastatin [Lipitor] 80 mg PO HS 30 Days #30 tab 02/05/24 [Rx] Losartan [Cozaar] 100 mg PO DAILY 30 Days #60 tab 02/05/24 [Rx] Metoprolol Succinate (ER) [Toprol XL] 25 mg PO DAILY 30 Days #30 tab 02/05/24 [Rx] Ticagrelor [Brilinta] 90 mg PO BID 30 Days #60 tab 02/05/24 [Rx] Follow up Appointment(s)/Referral(s): Brian Connors DO [STAFF PHYSICIAN] - 1 Week Marycruz Myers MD [Primary Care Provider] - 1-2 days Discharge Disposition: HOME SELF-CARE
[2024-02-05] MEDS: LOSARTAN 50 MG TAB PO STA (12:13)
[2024-02-05] MEDS: METOPROLOL SUCCINATE (ER) 25 MG TAB.ER.24H PO STA (12:13)
[2024-02-05 13:05] VITALS: RESP 16; TEMP 98
--- NOTE | 2024-02-05 14:45 | P.PN ---
Subjective Progress Note Date: 02/05/24 HISTORY OF PRESENTING ILLNESS Patient is a pleasant 53-year-old male with history of obesity, diabetes anila litus type 2, strong family history of CAD who presents secondary to chest pain. He states he had been feeling fairly well up until tonight when he started having chest discomfort when he was exercising on a treadmill. He did have associated diaphoresis and shortness breath and had stopped some mild improvement however chest pain had been stuttering and eventually worsened and called EMS. He was given aspirin and 2 nitroglycerin with improvement in chest pain. Initial EKG showing normal sinus rhythm, normal axis, no significant ST or T wave abnormalities. Patient was chest pain-free however then began having more chest heaviness 8 out of 10 with associated diaphoresis and shortness rupinder th and EKG showed dynamic changes with significant ST depressions, T-wave inversions inferiorly as well as minimal J-point elevation, ST elevation 1 and aVL. He denies any similar episodes in the past. Does have father with history of aortic valve replacement as well as all of his 6-7 brothers and sisters with stents. He has been on cholesterol medications for last 20 years. Initial troponin 0.02 however repeat 0.1. He was given additional nitroglycerin, heparin and currently chest pain mildly improved at 4 out of 10. 02/04 Yesterday, patient underwent cardiac catheterization with Dr. Connors which revealed 100% mid LAD stenosis, 50% RCA stenosis, 60 to 70% small caliber PDA ostial stenosis. Patient was noted to have anterior ST elevation DC on arrival to the [facility] which had progressed from the ER. He had significantly elevated left-sided filling pressures. He is status post PCI of the mid LAD with drug- eluting stent and balloon. He is seen today on the cardiac stepdown unit. His blood pressure readings are elevated and losartan will be adjusted as well as metoprolol. Heart rate is in the 85 range. Blood pressure is 159/85, pulse ox 96% on room air. Repeat blood work reveals hemoglobin 16.6, BUN 11 creatinine 0.63, potassium 4.2. PHYSICAL EXAMINATION Vital signs reviewed. CONSTITUTIONAL: No apparent distress, mildly diaphoretic, obese. HEENT: Head is normocephalic. Pupils are equal, round. Sclerae anicteric. Mucous membranes of the mouth are moist. No JVD. No carotid bruit. CHEST EXAMINATION: Lungs are clear to auscultation. No chest wall tenderness is noted on palpation or with deep breathing. HEART EXAMINATION: Regular rate and rhythm. S1, S2 heard. No murmurs, gallops or rub. ABDOMEN: Soft, nontender. Positive bowel sounds. EXTREMITIES: 2+ peripheral pulses, no lower extremity edema and no calf tenderness. NEUROLOGIC EXAMINATION: Patient is awake, alert and oriented x3. ASSESSMENT 1. Non-STEMI progressed to anterior ST elevated DC 2. Hyperlipidemia 3. Strong family history of CAD 4. Diabetes mellitus type 2 5. Morbid obesity 6. Hypertension PLAN Continue patient's current cardiac medications Increase losartan to 100 mg daily Increase metoprolol succinate to 25 mg daily Patient is cleared for discharge cardiology will follow-up with Dr. Connors in 1 week. Nurse practitioner note has been reviewed, I agree with documented findings and plan of care. Patient was seen and examined. Objective - Vital Signs Vital signs: Vital Signs Temp 97.5 F L 02/05/24 09:15 Pulse 84 02/05/24 09:15 Resp 18 02/05/24 09:15 BP 151/95 02/05/24 09:15 Pulse Ox 95 02/05/24 09:15 FiO2 Intake & Output 02/04/24 02/05/24 02/05/24 18:59 06:59 18:59 Intake Total 695.5 240 Output Total 450 Balance 245.5 240 Weight 121.109 kg Intake: IV 120 Sodium Chloride 0.9% 1, 120 000 ml In Empty Bag 1 bag @ 1 ML/KG/HR 121.109 mls /hr IV .Q8H16M [facility] Rx#: [id number] Intake, IV Titration 75.5 Amount Heparin Sod,Pork in 0.45% 75.5 NaCl 25,000 unit In 0.45 % NaCl 1 250ml.bag @ 8. 257 UNITS/KG/HR 10 mls/hr IV .Q24H [facility] Rx#: [id number] Oral 500 240 Output: Urine 450 Other: Voiding Method Toilet Toilet Toilet # Voids 1 2 # Bowel Movements 1 - Labs CBC & Chem 7: 02/05/24 07:18 02/05/24 07:18 Labs: Abnormal Lab Results - Last 24 Hours (Table) 02/04/24 02/04/24 02/04/24 Range/Units 11:41 17:08 20:01 WBC (3.8-10.6) k/uL Sodium (137-145) mmol/L Carbon Dioxide (22-30) mmol/L Creatinine (0.66-1.25) mg/dL Glucose (74-99) mg/dL POC Glucose (mg/dL) 235 H 156 H 198 H (70-110) mg/dL 02/05/24 02/05/24 02/05/24 Range/Units 06:03 07:18 07:18 WBC 11.6 H (3.8-10.6) k/uL Sodium 136 L (137-145) mmol/L Carbon Dioxide 21 L (22-30) mmol/L Creatinine 0.63 L (0.66-1.25) mg/dL Glucose 195 H (74-99) mg/dL POC Glucose (mg/dL) 199 H (70-110) mg/dL
[2024-02-05 16:02] LABS: Chol/HDL Ratio 3.18 Ratio; LDL Cholesterol,Calculated 83.4 mg/dL (0.0-131.0)
[2024-02-05 16:03] VITALS: BP 134/45; PULSE 90
[2024-02-05 16:25] LABS: Glucose,Whole Blood 177 mg/dL (70-110)
[2024-02-06] MEDS ORDERED: METOPROLOL SUCCINATE (ER) 25 MG TAB.ER.24H PO SCH (09:00)
[2024-02-06] MEDS ORDERED: LOSARTAN 50 MG TAB PO SCH (09:00)
== END 2024-02-05 16:58 | disposition home or self-care (01) | DRG 322 ==
LOC: EC 19:39 → 2SICU 02-04 00:53 → 3SCARD 02-04 16:30
PROVIDERS: ADMIT Internal Medicine; ATTEND Internal Medicine
PROC: B2151ZZ Fluoroscopy of Left Heart using Low Osmolar Contrast (ICD-10-PCS; principal; 2024-02-04 00:24)
PROC: 02C03ZZ Extirpation of Matter from Coronary Artery, One Artery, Percutaneous Approach (ICD-10-PCS; principal; 2024-02-04 00:24)
PROC: 4A023N7 Measurement of Cardiac Sampling and Pressure, Left Heart, Percutaneous Approach (ICD-10-PCS; principal; 2024-02-04 00:24)
PROC: 027034Z Dilation of Coronary Artery, One Artery with Drug-eluting Intraluminal Device, Percutaneous Approach (ICD-10-PCS; principal; 2024-02-04 00:24)
PROC: B240ZZ3 Ultrasonography of Single Coronary Artery, Intravascular (ICD-10-PCS; principal; 2024-02-04 00:24)
PROC: B2111ZZ Fluoroscopy of Multiple Coronary Arteries using Low Osmolar Contrast (ICD-10-PCS; principal; 2024-02-04 00:24)
DX: I21.09 ST elevation (STEMI) myocardial infarction involving other coronary artery of anterior wall (principal); E11.9 Type 2 diabetes mellitus without complications; I25.110 Atherosclerotic heart disease of native coronary artery with unstable angina pectoris; I10 Essential (primary) hypertension; E66.9 Obesity, unspecified; Z68.39 Body mass index [BMI] 39.0-39.9, adult; I25.83 Coronary atherosclerosis due to lipid rich plaque; I25.2 Old myocardial infarction; E78.5 Hyperlipidemia, unspecified; Z79.82 Long term (current) use of aspirin; Z79.84 Long term (current) use of oral hypoglycemic drugs; Z79.899 Other long term (current) drug therapy; Z71.3 Dietary counseling and surveillance; Z82.49 Family history of ischemic heart disease and other diseases of the circulatory system
CPT/HCPCS: 36415; 71046; 76937; 80048; 80053; 80061; 83036; 83735; 84484; 85025; 85027; 85610; 85730; 92973; 92978; 93005; 93306; 93458; 96365; 96375; 96376; 99291